=== PATIENT | male | born 1960 | race Caucasian/White ===

== ENCOUNTER 2019-02-25 16:02 | Outpatient (REF) | payer BC, SELFPAY ==
[2019-02-25 21:39] LABS: HCT 46.3 % (40.0-50.0); HGB 15.6 g/dL (13.5-17.5); Mean Corp. HGB Concentration 33.7 g/dL (32.0-36.0); Mean Corpuscular Hemoglobin 30.8 pg (27.0-33.0); Mean Corpuscular Volume 91.5 fL (80-95); Mean Platelet Volume 12.6 fL (8.0-11.0); Platelet Count 213 x1000/uL (130-400); RBC 5.06 m/cumm (4.50-6.00); RBC Distribution Width 12.2 % (11.8-14.1); White Blood Cell Count 6.22 k/cumm (4.4-10.8)
== END 2019-02-25 16:22 ==
LOC: NCHCN 16:02
PROVIDERS: PCP Internal Medicine; Visit Provider Internal Medicine
DX: R51 Headache (principal); K30 Functional dyspepsia; R06.09 Other forms of dyspnea
CPT/HCPCS: 85027

== ENCOUNTER 2019-03-24 00:19 | Outpatient (CLI) | payer BC, SELFPAY ==
--- NOTE | 2019-03-24 15:24 | DI.CT_ITS ---
SYMPTOM/DIAGNOSIS: HEADACHE, R51 NONCONTRAST HEAD CT: There are no prior comparison exams. There is partial opacification of the right maxillary sinus. There is also some opacification of right sided ethmoid air cells. Mild mucosal thickening is seen in the frontal sinuses. The mastoid air cells appear clear. The brain has a normal appearance. There is no evidence of a mass, hemorrhage or infarct. The ventricles are normal in size. The orbits are unremarkable. IMPRESSION: Sinus disease. No acute intracranial abnormality.
== END 2019-03-24 00:39 ==
PROVIDERS: PCP Internal Medicine; Visit Provider Internal Medicine
DX: R51 Headache (principal); J32.8 Other chronic sinusitis
CPT/HCPCS: 70450

== ENCOUNTER 2019-06-24 11:01 | Day surgery (SDC) | payer BC, SELFPAY ==
[2019-06-24 12:16] VITALS: BP 131/90; PULSE 61; RESP 20; TEMP 36.8; O2SAT 98
[2019-06-24] MEDS: Lactated Ringers 1,000 ML 80 ML IV ×2 (12:29→15:00)
--- NOTE | 2019-06-24 14:40 | STOM_PTH ---
PATIENT: Alex Swartz LOC: [facility] U#:[id number] AGE/SX: 59/M ROOM: RE06/24/[address]: Annamaria Herrera MD : [id number] BED: DIS: 06/24/2019 SPEC #: [id number] RECD: 06/24/19 17:14 STATUS: GERONIMO RE #: [id number] JIL: 06/24/19 14:[address]: Annamaria Herrera DEPT: Surgical Specimen RECD BY: Oma Michele ENTERED: 06/24/19 17:14 SP TYPE: STOMACH OTHR DR: Gilberto Kirkpatrick Tissues: 1 - STOMACH BIOPSY Procedures: GROSS AND MICRO LEVEL 4 Comments: [id number]
--- NOTE | 2019-06-24 15:14 | W.PM.DSUDISC ---
Discharge Plan Disposition Patient Disposition: HOME Condition: Good Discharge Details Reason For Visit: EGD, colonoscopy Attending Provider: Annamaria Herrera Primary Care Provider: Gilberto Kirkpatrick Home Meds and New Rx's Prescriptions: Continued fluticasone propionate [Allergy Relief (fluticasone)] 50 mcg/actuation spray,suspension 1 spray FER DAILY PRNRF: 0 pantoprazole 40 mg tablet,delayed release (DR/EC) 40 mg PO DAILY RF: 0 albuterol sulfate [ProAir HFA] 90 mcg/actuation HFA aerosol inhaler 1 puff IH Q6H PRNRF: 0 Symbicort 160-4.5 mcg/actuation HFA aerosol inhaler 2 puff IH BID RF: 0 ibuprofen 200 MG capsule 1 cap PO PRN PRNRF: 0 Discharge Instructions Additional Instructions: Findings: Your EGD showed mild inflammation in the stomach and duodenum. My office will contact you with biopsy results. Your colonoscopy was normal. Follow up: Plan for a colonoscopy in 5 years due to a history of polyps Please call if you develop: fevers >101.5 Nausea or Vomiting Abdominal pain that is not transient DAY SURGERY UNIT POST COLONOSCOPY INSTRUCTIONS 1. Because there will be medication in your system for the next 24 hours, you may feel a little sleepy. Your coordination will be affected. Therefore: a. Do not drive or operate dangerous equipment for 24 hours. b. Do not drink alcohol beverages for 24 hours (not even beer). c. Plan to go home and rest for the day. 2. Generally there are no restrictions on your activity after a day or so has gone by, but you may feel a bit fatigued for a few days. 3 After you arrive home you may have a light meal and return to a normal diet as you can tolerate it without feeling sick to your stomach. 4. After surgery, you may feel pain or discomfort. This should be only transient, but if it persists please contact your doctor. 5. If there are any questions regarding the findings of your procedure, please feel free to contact your doctor. 6. If you are unable to contact your doctor with a problem, contact the hospital at [phone]. 7. Continue all your regular medications unless directed otherwise. I understand the above instructions and have no questions. Signature of Patient or Responsible Adult Escort Date/Time Name of Responsible Adult Escort Signature of Nurse Date/Time Discharge Orders Discharge Orders: Discharge Order (Routine); Ordered 06/24/19 Ordered By: Annamaria Herrera DS: Diagnosis Discharge Diagnosis (1) Gastritis and duodenitis: Status: Acute (2) History of esophagogastroduodenoscopy (EGD):
[2019-06-24 15:50] VITALS: BP 143/96; PULSE 56; RESP 16; TEMP 35.9; O2SAT 98
--- NOTE | 2019-06-25 11:53 | ENDO_ITS ---
Date of Procedure: June 24, 2019 PREOPERATIVE DIAGNOSIS: 1. Reflux. 2. H/o colon polyps. POSTOPERATIVE DIAGNOSIS: 1. Mild gastritis/duodenitis. 2. Normal colon. TITLE OF PROCEDURE: 1. EGD with biopsy. 2. Colonoscopy. SURGEON: Dr. Annamaria Herrera ANESTHESIA: MAC. INDICATIONS: This is a 59 y/o man who reports fairly chronic reflux. He has never had an upper endo scopy. He is also due for a follow up colonoscopy due to a polyp that was diagnosis [id number]. He has no family history of colon cancer. PROCEDURE: He was placed in the left lateral decubitus position. Propofol was titrated to sedation. The E-scope was advanced into the esophagus under direct supervision and down into the stomach and duodenum. He had definite duodenitis in the first portion of the duodenum. The gastric antrum also revealed some mild to moderate gastritis. Retroflexed view of the fundus lesser curvature showed no abnormalities. Biopsies were taken from the gastric antrum. The EG junction was carefully inspec valery and showed no evidence of masses, inflammation, Ferguson's or strictures. The air was suctioned from the stomach and the scope slowly withdrawn with no other esophageal lesions found. GARETT revealed no abnormalities. The scope was advanced to the cecum w/o difficulty. The ileocecal va lve and appendiceal orifice was clearly identified. His prep was excellent. The scope was totally w ithdrawn with no abnormalities seen within the ascending, transverse, descending, sigmoid colon or re ctum, including retroflexed view. He tolerated the procedures well and was stable to recovery. He was advised to limit his ibuprofen intake, which he does take on a fairly regular basis. He will need a follow colonoscopy again in five years due to his history of polyps. Cc: Dr. Gilberto Kirkpatrick
== END 2019-06-24 17:21 | disposition home or self-care (01) ==
PROVIDERS: PCP Internal Medicine; Visit Provider Surgery
PROC: (CPT 43239; principal; 2019-06-24 12:30)
DX: K21.9 Gastro-esophageal reflux disease without esophagitis (principal); Z12.11 Encounter for screening for malignant neoplasm of colon; Z86.010 Personal history of colon polyps; K29.70 Gastritis, unspecified, without bleeding
CPT/HCPCS: 43239; 88305

== ENCOUNTER 2020-10-05 09:02 | Outpatient (REF) | payer BC, SELFPAY ==
[2020-10-05 23:05] LABS: HCT 47.4 % (40.0-50.0); HGB 15.7 g/dL (13.5-17.5); MCH 31.2 pg (27.0-33.0); MCHC 33.1 % (32.0-36.0); MPV 12.3 fL (8.0-11.0); Platelet Count 225 10^3/uL (130-400); RBC 5.04 10^6/uL (4.36-5.78); RDW 11.6 % (11.8-14.1); RDW-SD 39.8 fL; WBC 4.99 10^3/uL (4.4-10.8)
[2020-10-05 23:20] LABS: Cholesterol 276 mg/dL (<200); HDL Cholesterol 41 mg/dL (40-60); Triglyceride 449 mg/dL (<150)
[2020-10-05 23:36] LABS: LDL CHOLESTEROL 128 mg/dL (<100)
== END 2020-10-05 09:22 ==
LOC: NCHCN 09:02
PROVIDERS: PCP Internal Medicine; Visit Provider Family Medicine
DX: Z00.00 Encounter for general adult medical examination without abnormal findings (principal); E78.5 Hyperlipidemia, unspecified; R03.0 Elevated blood-pressure reading, without diagnosis of hypertension
CPT/HCPCS: 80061; 83721; 85027

== ENCOUNTER 2023-01-29 09:08 | Outpatient (REF) | payer BC, SELFPAY ==
[2023-01-29 15:28] LABS: Abs Immature Grans 0.04 10^3/uL (0.0-0.06); Absolute Basophil Count 0.05 10^3/uL (0.0-0.2); Absolute Eosinophil Count 0.13 10^3/uL (0.0-0.7); Absolute Lymphocyte Count 1.45 10^3/uL (1.2-3.4); Absolute Monocyte Count 0.66 10^3/uL (0.1-0.8); Absolute Neutrophil Count 3.19 10^3/uL (1.2-6.7); Basophils % 0.9; Eosinophils % 2.4; HCT 47.9 % (40.0-50.0); HGB 15.6 g/dL (13.5-17.5); Immature Grans % 0.7; Lymphocytes % 26.3; MCH 30.4 pg (27.0-33.0); MCHC 32.6 % (32.0-36.0); MCV 93 fL (80-95); MPV 12.3 fL (8.0-11.0); Neutrophils % 57.7; Platelet Count 218 10^3/uL (130-400); RBC 5.13 10^6/uL (4.36-5.78); RDW 11.9 % (11.8-14.1); RDW-SD 41.3 fL; WBC 5.52 10^3/uL (4.4-10.8)
[2023-01-29 15:58] LABS: ALT 37 U/L (16-63); AST 18 U/L (15-37); Alkaline Phosphatase 83 U/L (46-116); Anion Gap 7.5 mmol/L (3-11); BUN 14 mg/dL (7-18); CO2 30.5 mmol/L (21.0-32.0); CREATININE 1.3 mg/dL (0.70-1.30); Calcium 9.9 mg/dL (8.5-10.1); Calculated LDL 165 mg/dL (<100); Chloride 106 mmol/L (98-107); Cholesterol 280 mg/dL (<200); Estimated GFR 62.11 (mL/min/1.73m2); Glucose 107 mg/dL (74-106); HDL Cholesterol 39 mg/dL (40-60); Potassium 5.5 mmol/L (3.5-5.1); Sodium 144 mmol/L (136-145); TSH (W/Ref FT4) 2.35 uIU/mL (0.36-3.74); Total Protein 7.4 g/dL (6.4-8.2); Triglyceride 380 mg/dL (<150)
[2023-01-29 16:56] LABS: Bilirubin, Total 0.5 mg/dL (0.2-1.0)
[2023-02-03 11:15] LABS: Testosterone, Free 9.37 ng/dL (3.67-13.9); Testosterone, Total 271 ng/dL (240-950)
== END 2023-01-29 09:09 | disposition home or self-care (01) ==
LOC: NCHCN 09:08
PROVIDERS: PCP Internal Medicine; Visit Provider Family Medicine
DX: Z00.00 Encounter for general adult medical examination without abnormal findings (principal); I10 Essential (primary) hypertension; E78.1 Pure hyperglyceridemia; F52.21 Male erectile disorder; E78.5 Hyperlipidemia, unspecified
CPT/HCPCS: 80053; 80061; 84402; 84403; 84443; 85025

== ENCOUNTER 2023-04-13 13:41 | Emergency (ER) | payer OTHER, SELFPAY ==
[2023-04-13 13:43] VITALS: BP 103/74; PULSE 72; RESP 16; TEMP 36.6; O2SAT 96
--- NOTE | 2023-04-13 14:00 | DI.RAD_ITS ---
Exam(s) XR SHOULDER LT COMPLETE 2+V EXAM: XR SHOULDER LT COMPLETE 2+V CLINICAL HISTORY: fall, truama ? ac joint injury. TECHNIQUE: 2D digital imaging was performed. Five views. COMPARISON: No exams were available for comparison FINDINGS: BONES: No acute fracture is present. No bony destructive lesion is seen. JOINTS: No dislocation present. SOFT TISSUE: Normal. IMPRESSION: Unremarkable radiographs of the left shoulder. DATA REPOSITORY: RADIATION DOSE DELIVERED:
--- NOTE | 2023-04-13 14:07 | ED.GENADUL_ITS ---
Discharge Plan Disposition Patient Disposition: Home Discharge Details Clinical Impression: Injury of left shoulder Primary Care Provider: Gilberto Kirkpatrick ED Provider: Liborio Montero Home Meds and New Rx's Prescriptions: Continued fluticasone propionate [Allergy Relief (fluticasone)] 50 mcg/actuation spray,suspension 1 spray FER DAILY PRN Patient Comments: patient states that he has not taken in years pantoprazole 40 mg tablet,delayed release (DR/EC) 40 mg PO DAILY albuterol sulfate [ProAir HFA] 90 mcg/actuation HFA aerosol inhaler 1 puff IH Q6H PRN budesonide-formoterol [Symbicort] 160-4.5 mcg/actuation HFA aerosol inhaler 2 puff IH BID ibuprofen 200 MG capsule 1 cap PO PRN PRN lisinopril 2.5 mg tablet 1 mg PO DAILY Patient Comments: TAKE 1 TABLET BY MOUTH EVERY DAY Discharge Instructions Instructions: Shoulder Sprain (ED) Additional Instructions: You may continue to use [id number] pain medication as needed for discomfort. Please perform range of motion exercises 3-4 times daily as discussed and if not improving follow-up with your primary care provider for reassessment and referral as needed. If you have any new or significant worsening of symptoms feel free to return the emergency department for evaluation Referrals: Gilberto Kirkpatrick MD [Primary Care Provider] - Discharge Data Discharge Date/Time-TO BE ENTERED AT DEPARTURE: 04/13/23 15:29 Medical Decision Making Patient presenting to the emergency department for chief complaint of left shoulder injury. He states that he was playing with some kids at school and jumped over a kid to avoid a collision and tucked and rolled landing on his left shoulder. When this happened he started having significant pain and discomfort. Patient denies any numbness or tingling, states full range of motion and normal function distal to injury, patient does report that initially after the injury he had full range of motion of his shoulder but since time is gone on he has noticed more increasing pain and discomfort with range of motion. Physical exam shows tenderness to the superior aspect of the shoulder mainly over the AC joint. Patient does have some subacromial bursa tenderness and generalized swelling to the AC area. Exam is otherwise unremarkable. We will perform radiological imaging and give ibuprofen pending results. Review of radiological imaging shows no acute findings. Will place patient in sling and refer patient to follow-up with PCP if not improving in the next 1 to 2 weeks. After discussion of diagnosis and plan of care patient has no further needs, questions, or concerns and states clear understanding to return to the emergency department for any worsening symptoms. This documentation was generated using [employer] system, please disregard any oddities of phrase or misspellings. Imaging Data Radiologic Study: Imaging: X-Ray Radiologist's impression: Exam(s) XR SHOULDER LT COMPLETE 2+V EXAM: XR SHOULDER LT COMPLETE 2+V CLINICAL HISTORY: fall, truama ? ac joint injury. TECHNIQUE: 2D digital imaging was performed. Five views. COMPARISON: No exams were available for comparison FINDINGS: BONES: No acute fracture is present. No bony destructive lesion is seen. JOINTS: No dislocation present. SOFT TISSUE: Normal. IMPRESSION: Unremarkable radiographs of the left shoulder. HPI General Mode of arrival: ambulatory . Date/Time Provider Initiated Documentation: 04/13/23 13:50 . Limitations to Documentation: no limitations . Information obtained by: patient and RN notes reviewed . History of Present Illness 63 year old M presents to the emergency department with the chief complaint of Fall with left shoulder injury, described as moderate, Patient started experiencing this hour(s) (1) and it has been constant. Immobilization improves symptom(s), Movement worsens symptoms . Patient notes no other symptoms.. Patient did receive the following treatments prior to arrival, none Related Data Home Medications Medication Instructions Recorded Confirmed ibuprofen 200 mg capsule 1 cap PO PRN PRN 02/11/15 04/13/23 albuterol sulfate 90 mcg/actuation 1 puff inhalation Q6H PRN 05/08/19 04/13/23 aerosol inhaler (ProAir HFA) budesonide-formoterol HFA 160 2 puff inhalation BID 05/08/19 04/13/23 mcg-4.5 mcg/actuation aerosol inhaler (Symbicort) fluticasone propionate 50 1 spray intranasal DAILY PRN 05/08/19 06/06/19 mcg/actuation nasal spray,suspension (Allergy Relief (fluticasone)) pantoprazole 40 mg tablet,delayed 40 mg PO DAILY 05/08/19 04/13/23 release lisinopril 2.5 mg tablet 1 mg PO DAILY 04/13/23 04/13/23 Allergies Allergy/AdvReac Type Severity Reaction Status Date / Time No Known Allergies Allergy Verified 04/13/23 14:25 General Stated Complaint: Orthopedic WOLFGANG: 4 Review of Systems Narrative: 6 systems reviewed and unremarkable except what is marked below. Cardiovascular Cardiovascular: Denies chest pain Musculoskeletal Musculoskeletal: Reports as per HPI, Reports arthralgias, Reports joint swelling, Denies muscle weakness, Denies numbness and Denies tingling Integumentary/Breasts Skin/Breast: Denies wounds Neurologic Neurologic: Denies numbness and Denies tingling PFSH All Active Problems (Updated 04/13/23 @ 15:13 by Liborio Montero NP) Injury of left shoulder (Acute) Gastritis and duodenitis (Acute) Medical History Asthma mild, intermittent Dyspepsia Exertional shortness of breath Family history of prostate cancer Heartburn Surgical History History of colonoscopy 06/24/19 History of esophagogastroduodenoscopy (EGD) 06/24/19 Family History Other Cancer Social History Smoking/Tobacco Use Status: Former Tobacco Use Smoking risk assessment performed?: Yes Alcohol Intake: current Alcohol Intake frequency: a few times a week Alcohol type: beer Drug use: Never Do you feel safe at home: Yes Do you feel safe in your relationship?: Yes Exam Const General: cooperative, no acute distress and not ill appearing Orientation: alert, awake and oriented x3 HENMT Mouth: moist mucous membranes Resp Effort & Inspection: normal respiratory effort, able to speak in complete sentences and no respiratory distress Auscultation: clear to auscultation bilaterally Cardio Rate: regular rate Rhythm: regular rhythm Heart Sounds: S1 normal and S2 normal Skin General skin exam: no rashes or lesions noted Neuro General: patient alert, patient awake, patient oriented x3, moves all extremities and no focal motor deficits Sensory Exam: no sensory deficits noted Extrem General: normal exam except as noted Right upper extremity: shoulder/upper arm Details: normal to inspection, tenderness Location: of the A-C joint and over the subacromial bursa, swelling Location: of the A-C joint, axillary nerve sensory function normal and abnormal ROM Details: pain with active ROM and with range as follows (full), elbow/forearm Details: normal to inspection and normal ROM and hand Details: normal to inspection, neuromotor exam normal, neurosensory exam normal, tendon exam normal, vascular exam Details: radial pulse present and normal ROM of fingers Course Vital Signs Vital signs: Vital Signs Temperature 36.6 C 04/13/23 13:43 Pulse 72 04/13/23 13:43 Respiratory Rate 16 04/13/23 13:43 Blood Pressure 103/74 04/13/23 13:43 Pulse Oximetry 96 04/13/23 13:43 Temperature 36.6 C 04/13/23 13:43 Temperature Source Skin 04/13/23 13:43 Pulse 72 04/13/23 13:43 Respiratory Rate 16 04/13/23 13:43 Respiratory Effort Normal 04/13/23 13:57 Blood Pressure 103/74 04/13/23 13:43 Blood Pressure Position Sitting 04/13/23 13:43 Pulse Oximetry 96 04/13/23 13:43 Oxygen Delivery Method Room Air 04/13/23 13:43 Oxygen Flow Rate 0 04/13/23 13:43 Pain Level 8 04/13/23 13:[address] to ER 04/13/23 13:43
[2023-04-13] MEDS: Ibuprofen 600 MG TAB PO (14:09)
== END 2023-04-13 15:29 | disposition home or self-care (01) ==
PROVIDERS: Emergency Provider Nurse Practitioner Family; PCP Internal Medicine
DX: S49.92XA Unspecified injury of left shoulder and upper arm, initial encounter (principal); W19.XXXA Unspecified fall, initial encounter
CPT/HCPCS: 99283; 73030

== ENCOUNTER 2023-05-10 11:52 | Outpatient (REF) | payer BC, SELFPAY ==
[2023-05-10 14:18] LABS: Calculated LDL 176 mg/dL (<100); Cholesterol 251 mg/dL (<200); HDL Cholesterol 54 mg/dL (40-60); Triglyceride 108 mg/dL (<150)
== END 2023-05-10 11:53 | disposition home or self-care (01) ==
LOC: NCHCN 11:52
PROVIDERS: PCP Internal Medicine; Visit Provider Family Medicine
DX: Z00.00 Encounter for general adult medical examination without abnormal findings (principal); I10 Essential (primary) hypertension; E78.1 Pure hyperglyceridemia
CPT/HCPCS: 80061

== ENCOUNTER 2024-04-14 10:02 | Outpatient (REF) | payer BC, SELFPAY ==
[2024-04-14 15:53] LABS: HCT 45.5 % (40.0-50.0); HGB 15.5 g/dL (13.5-17.5); MCH 31.1 pg (27.0-33.0); MCHC 34.1 % (32.0-36.0); MCV 91 fL (80-95); Platelet Count 179 10^3/uL (130-400); RBC 4.98 10^6/uL (4.36-5.78); RDW-SD 40.1 fL; WBC 4.86 10^3/uL (4.4-10.8)
[2024-04-14 16:43] LABS: ALT 51 U/L (16-63); AST 25 U/L (15-37); Albumin 3.9 g/dL (3.4-5.0); Alkaline Phosphatase 84 U/L (46-116); Anion Gap 8.6 mmol/L (3-11); BUN 17 mg/dL (7-18); Bilirubin, Total 0.7 mg/dL (0.2-1.0); CO2 27.4 mmol/L (21.0-32.0); CREATININE 1.1 mg/dL (0.70-1.30); Chloride 107 mmol/L (98-107); Estimated GFR 75.43 (mL/min/1.73m2); Glucose 100 mg/dL (74-106); Potassium 4.4 mmol/L (3.5-5.1); Sodium 143 mmol/L (136-145); TSH (W/Ref FT4) 1.65 uIU/mL (0.36-3.74); Total Protein 6.9 g/dL (6.4-8.2)
[2024-04-14 17:12] LABS: Calculated LDL 89 mg/dL (<100); Cholesterol 181 mg/dL (<200); HDL Cholesterol 47 mg/dL (40-60); Triglyceride 227 mg/dL (<150)
[2024-04-22 13:16] LABS: Testosterone, Free 8.26 ng/dL (3.67-13.9); Testosterone, Total 261 ng/dL (240-950)
== END 2024-04-14 10:03 | disposition home or self-care (01) ==
LOC: NCHCN 10:02
PROVIDERS: PCP Internal Medicine; Visit Provider Family Medicine
DX: I10 Essential (primary) hypertension (principal); E78.5 Hyperlipidemia, unspecified; F52.21 Male erectile disorder; Z00.00 Encounter for general adult medical examination without abnormal findings
CPT/HCPCS: 80053; 80061; 84402; 84403; 85027; 84443

== ENCOUNTER 2025-03-19 09:17 | Outpatient (REF) | payer BC, SELFPAY ==
[2025-03-19 14:51] LABS: HCT 47.7 % (40.0-50.0); MCH 31.1 pg (27.0-33.0); MCHC 33.5 % (32.0-36.0); MCV 93 fL (80-95); MPV 12.2 fL (8.0-11.0); Platelet Count 218 10^3/uL (130-400); RBC 5.15 10^6/uL (4.36-5.78); RDW 12.2 % (11.8-14.1); RDW-SD 41.4 fL; WBC 4.76 10^3/uL (4.4-10.8)
[2025-03-19 15:08] LABS: ALT 48 U/L (16-63); AST 27 U/L (15-37); Albumin 4.3 g/dL (3.4-5.0); Alkaline Phosphatase 86 U/L (46-116); Anion Gap 8.9 mmol/L (3-11); BUN 22 mg/dL (7-18); Bilirubin, Total 0.7 mg/dL (0.2-1.0); CO2 29.1 mmol/L (21.0-32.0); CREATININE 1.1 mg/dL (0.70-1.30); Calcium 9.3 mg/dL (8.5-10.1); Calculated LDL 81 mg/dL (<100); Chloride 104 mmol/L (98-107); Cholesterol 156 mg/dL (<200); Estimated GFR 74.96 (mL/min/1.73m2); Glucose 100 mg/dL (74-106); HDL Cholesterol 51 mg/dL (>or=40); Potassium 4.4 mmol/L (3.5-5.1); Sodium 142 mmol/L (136-145); Total Protein 7.5 g/dL (6.4-8.2); Triglyceride 122 mg/dL (<150)
[2025-03-19 15:13] LABS: Hemoglobin A1C 5.8 % (<5.7)
== END 2025-03-19 09:18 | disposition home or self-care (01) ==
LOC: NCHCN 09:17
PROVIDERS: PCP Family Medicine; Visit Provider Family Medicine
DX: E78.5 Hyperlipidemia, unspecified (principal); E78.1 Pure hyperglyceridemia; Z00.00 Encounter for general adult medical examination without abnormal findings
CPT/HCPCS: 80053; 80061; 85027; 83036